=== PATIENT | male | born 1955 | race Caucasian/White ===

== ENCOUNTER 2025-02-11 11:57 | Emergency (ER) | payer MEDICARE, OTHER ==
[2025-02-11] MEDS: diazePAM 5 MG/ML MDV IVPUSH ONE (12:46)
[2025-02-11] MEDS: diazePAM 5 MG/ML MDV IV ONE (12:54)
== END 2025-02-11 14:55 | disposition home or self-care (01) ==
LOC: LB.ED 11:57
DX: T84.020A Dislocation of internal right hip prosthesis, initial encounter (principal); F17.200 Nicotine dependence, unspecified, uncomplicated; Z96.649 Presence of unspecified artificial hip joint; Z79.899 Other long term (current) drug therapy; X58.XXXA Exposure to other specified factors, initial encounter
CPT/HCPCS: 27265; 73501; 96374; 96375; 96376; 99283; J2270; J3360